=== PATIENT | female | born 1980 | race American Indian/Alaskan Native ===

== ENCOUNTER 2018-02-27 21:55 | Inpatient (IN) | payer OTHER ==
[2018-02-27] MEDS ORDERED: NACL 0.9% 1000 ML 1,000 ML IV ONE (22:33)
[2018-02-27 23:03] LABS: Basophils % (Auto) 0.6 % (0.0-1.8); Eosinophils % (Auto) 0.7 % (0.0-4.3); Hematocrit 37.4 % (30.3-42.9); Hemoglobin 12.5 gm/dl (10.1-14.3); Lymphocytes # (Auto) 1.6 K/mm3 (1.2-5.4); Lymphocytes % (Auto) 28.2 % (13.4-35.0); Mean Corpuscular HGB Conc 34 % (30-34); Mean Corpuscular Hemoglobin 32 pg (28-32); Mean Corpuscular Volume 95 fl (79-97); Monocytes # (Auto) 0.3 K/mm3 (0.0-0.8); Platelet Count 275 K/mm3 (140-440); Red Blood Count 3.92 M/mm3 (3.65-5.03); Red Cell Distribution Width 15.6 % (13.2-15.2)
[2018-02-27 23:11] LABS: Alanine Aminotransferase 54 units/L (7-56); Albumin 4.3 g/dL (3.9-5); BUN/Creatinine Ratio 13; Blood Urea Nitrogen 8 mg/dL (7-17); Hemolysis Index 9
[2018-02-28 00:32] LABS: Bilirubin,Urine SM (Negative); Blood,Urine NEG (Negative); Color,Urine Amber (Yellow); Hyaline Casts,Urine 16 /LPF; Mucus,Urine FEW /HPF
[2018-02-28 01:16] LABS: Ictotest,Urine Negative (Negative)
--- NOTE | 2018-02-28 01:53 | Emergency Department Report ---
ED Abdominal Pain HPI - General Chief Complaint: Abdominal Pain Stated Complaint: ABD/BACK PAIN Time Seen by Provider: 02/28/18 01:52 Source: patient Mode of arrival: Ambulatory Limitations: No Limitations - History of Present Illness Initial Comments: Patient complained of tinnitus of abdominal swelling and on abdominal pain. MD Complaint: abdominal pain -: Sudden, days(s) (2) Location: diffuse Radiation: back Migration to: no migration Severity: severe Severity scale (0 -10): 10 Quality: sharp Consistency: constant Improves With: nothing Worsens With: nothing Associated Symptoms: denies other symptoms - Related Data Allergies Allergy/AdvReac Type Severity Reaction Status Date / Time No Known Allergies Allergy Unverified 02/27/18 22:33 ED Review of Systems ROS: Stated complaint: ABD/BACK PAIN Other details as noted in HPI Comment: All other systems reviewed and negative Constitutional: denies: chills, fever Eyes: denies: eye pain ENT: denies: ear pain Respiratory: denies: cough, shortness of breath Cardiovascular: denies: chest pain, palpitations, dyspnea on exertion, orthopnea Endocrine: no symptoms reported Gastrointestinal: abdominal pain. denies: nausea, vomiting, diarrhea Genitourinary: denies: urgency, dysuria, frequency Musculoskeletal: denies: back pain Skin: denies: rash, lesions Neurological: denies: headache, weakness, numbness Psychiatric: denies: anxiety, depression, homicidal thoughts, suicidal thoughts Hematological/Lymphatic: denies: easy bleeding, easy bruising ED Past Medical Hx - Past Medical History Previous Medical History?: Yes Hx Hypertension: Yes - Surgical History Past Surgical History?: Yes Additional Surgical History: c section - Social History Smoking Status: Never Smoker Substance Use Type: Alcohol ED Physical Exam - General Limitations: No Limitations General appearance: alert, in distress - Head Head exam: Present: atraumatic, normocephalic, normal inspection - Eye Eye exam: Present: normal appearance, PERRL, EOMI Pupils: Present: normal accommodation - ENT ENT exam: Present: normal exam, normal orophraynx, mucous membranes moist - Neck Neck exam: Present: normal inspection, full ROM. Absent: tenderness - Respiratory Respiratory exam: Present: normal lung sounds bilaterally. Absent: respiratory distress, wheezes, rales, rhonchi, stridor - Cardiovascular Cardiovascular Exam: Present: normal rhythm, tachycardia, normal heart sounds - GI/Abdominal GI/Abdominal exam: Present: soft, distended, tenderness, guarding, normal bowel sounds. Absent: rebound, rigid - Extremities Exam Extremities exam: Present: normal inspection, full ROM, normal capillary refill. Absent: tenderness - Back Exam Back exam: Present: normal inspection, full ROM. Absent: tenderness - Neurological Exam Neurological exam: Present: alert, oriented X3, CN II-XII intact - Psychiatric Psychiatric exam: Present: normal affect, normal mood - Skin Skin exam: Present: warm, dry, intact, normal color. Absent: rash ED Course Vital Signs 02/27/18 02/27/18 02/28/18 22:12 22:30 00:45 Temperature 99.0 F 99.0 F Pulse Rate 126 H 123 H Respiratory 18 17 18 Rate Blood Pressure 152/117 152/117 O2 Sat by Pulse 99 99 99 Oximetry 02/28/18 02/28/18 02/28/18 02:40 03:10 05:11 Temperature Pulse Rate Respiratory 18 18 18 Rate Blood Pressure O2 Sat by Pulse Oximetry - Consultations Consultation #1: 02/28/18 04:40 I consulted the hospitalist in call Dr Villagomez and he will admit patient for further management. ED Medical Decision Making - Lab Data Result diagrams: 02/27/18 22:42 02/27/18 22:42 Lab Results 02/27/18 02/27/18 02/27/18 Range/Units 22:42 22:42 22:42 WBC 5.7 (4.5-11.0) K/mm3 RBC 3.92 (3.65-5.03) M/mm3 Hgb 12.5 (10.1-14.3) gm/dl Hct 37.4 (30.3-42.9) % MCV 95 (79-97) fl MCH 32 (28-32) pg MCHC 34 (30-34) % RDW 15.6 H (13.2-15.2) % Plt Count 275 (140-440) K/mm3 Lymph % (Auto) 28.2 (13.4-35.0) % [place] % (Auto) 6.0 (0.0-7.3) % Eos % (Auto) 0.7 (0.0-4.3) % Baso % (Auto) 0.6 (0.0-1.8) % Lymph # 1.6 (1.2-5.4) K/mm3 [place] # 0.3 (0.0-0.8) K/mm3 Eos # 0.0 (0.0-0.4) K/mm3 Baso # 0.0 (0.0-0.1) K/mm3 Seg Neutrophils % 64.5 (40.0-70.0) % Seg Neutrophils # 3.7 (1.8-7.7) K/mm3 Sodium 138 (137-145) mmol/L Potassium 3.5 L (3.6-5.0) mmol/L Chloride 97.4 L (98-107) mmol/L Carbon Dioxide 24 (22-30) mmol/L Anion Gap 20 mmol/L BUN 8 (7-17) mg/dL Creatinine 0.6 L (0.7-1.2) mg/dL Estimated GFR > 60 ml/min BUN/Creatinine Ratio 13 % Glucose 150 H (65-100) mg/dL Calcium 9.0 (8.4-10.2) mg/dL Total Bilirubin 0.60 (0.1-1.2) mg/dL AST 111 H (5-40) units/L ALT 54 (7-56) units/L Alkaline Phosphatase 116 (35-129) units/L Total Protein 7.9 (6.3-8.2) g/dL Albumin 4.3 (3.9-5) g/dL Albumin/Globulin Ratio 1.2 % Lipase (13-60) units/L HCG, Qual Negative (Negative) Urine Color (Yellow) Urine Turbidity (Clear) Urine pH (5.0-7.0) Ur Specific [place] (1.003-1.030) Urine Protein (Negative) mg/dL Urine Glucose (UA) (Negative) mg/dL Urine Ketones (Negative) mg/dL Urine Blood (Negative) Urine Nitrite (Negative) Urine Bilirubin (Negative) Urine Ictotest (Negative) Urine Urobilinogen (<2.0) mg/dL Ur Leukocyte Esterase (Negative) Urine WBC (Auto) (0.0-6.0) /HPF Urine RBC (Auto) (0.0-6.0) /HPF U Epithel Cells (Auto) (0-13.0) /HPF Hyaline Casts /LPF Urine Mucus /HPF 02/27/18 02/27/18 Range/Units 22:42 23:54 WBC (4.5-11.0) K/mm3 RBC (3.65-5.03) M/mm3 Hgb (10.1-14.3) gm/dl Hct (30.3-42.9) % MCV (79-97) fl MCH (28-32) pg MCHC (30-34) % RDW (13.2-15.2) % Plt Count (140-440) K/mm3 Lymph % (Auto) (13.4-35.0) % [place] % (Auto) (0.0-7.3) % Eos % (Auto) (0.0-4.3) % Baso % (Auto) (0.0-1.8) % Lymph # (1.2-5.4) K/mm3 [place] # (0.0-0.8) K/mm3 Eos # (0.0-0.4) K/mm3 Baso # (0.0-0.1) K/mm3 Seg Neutrophils % (40.0-70.0) % Seg Neutrophils # (1.8-7.7) K/mm3 Sodium (137-145) mmol/L Potassium (3.6-5.0) mmol/L Chloride (98-107) mmol/L Carbon Dioxide (22-30) mmol/L Anion Gap mmol/L BUN (7-17) mg/dL Creatinine (0.7-1.2) mg/dL Estimated GFR ml/min BUN/Creatinine Ratio % Glucose (65-100) mg/dL Calcium (8.4-10.2) mg/dL Total Bilirubin (0.1-1.2) mg/dL AST (5-40) units/L ALT (7-56) units/L Alkaline Phosphatase (35-129) units/L Total Protein (6.3-8.2) g/dL Albumin (3.9-5) g/dL Albumin/Globulin Ratio % Lipase 1031 H (13-60) units/L HCG, Qual (Negative) Urine Color [place] (Yellow) Urine Turbidity Slightly-cloudy (Clear) Urine pH 5.0 (5.0-7.0) Ur Specific [place] 1.031 H (1.003-1.030) Urine Protein 100 mg/dl (Negative) mg/dL Urine Glucose (UA) Neg (Negative) mg/dL Urine Ketones 20 (Negative) mg/dL Urine Blood Neg (Negative) Urine Nitrite Neg (Negative) Urine Bilirubin Sm (Negative) Urine Ictotest Negative (Negative) Urine Urobilinogen 2.0 (<2.0) mg/dL Ur Leukocyte Esterase Neg (Negative) Urine WBC (Auto) 9.0 H (0.0-6.0) /HPF Urine RBC (Auto) 2.0 (0.0-6.0) /HPF U Epithel Cells (Auto) 4.0 (0-13.0) /HPF Hyaline Casts 16 /LPF Urine Mucus Few /HPF - Radiology Data Radiology results: report reviewed, image reviewed - Medical Decision Making Abdominal Pain. Acute Pancreatitis. Critical Care Time: Yes Critical care time in (mins) excluding proc time.: 35 Critical care attestation.: If time is entered above; I have spent that time in minutes in the direct care of this critically ill patient, excluding procedure time. ED Disposition Clinical Impression: Alcohol abuse Acute pancreatitis Qualifiers: Pancreatitis type: unspecified pancreatitis type Acute pancreatitis complication: unspecified Qualified Code(s): K85.90 - Acute pancreatitis without necrosis or infection, unspecified Abdominal pain Qualifiers: Abdominal location: generalized Qualified Code(s): R10.84 - Generalized abdominal pain Disposition: -09 OP ADMIT IP TO THIS HOSP Is pt being admited?: Yes Does the pt Need Aspirin: No Condition: Stable Time of Disposition: 04:41
[2018-02-28] MEDS ORDERED: ZOFRAN IV ONE (02:25)
[2018-02-28] MEDS ORDERED: NACL 0.9% 1000 ML 1,000 ML IV ONE (02:25)
[2018-02-28] MEDS ORDERED: DILAUDID IV ONE ×2 (02:25→04:45)
--- NOTE | 2018-02-28 04:12 | Cat Scan Report ---
FINAL REPORT EXAM: CT ABDOMEN PELVIS W CON HISTORY: Abdomen Pain TECHNIQUE: CT images are acquired through the Abdomen and Pelvis in late arterial and delayed phases following intravenous administration of contrast. Transaxial, coronal and sagittal reformations are provided. PRIORS: None FINDINGS: Partially visualized intrathoracic contents are unremarkable. Hepatomegaly and hepatic steatosis. The liver is normal in contour. Portal vein is normal in caliber and patent. The gallbladder, spleen, and adrenal glands are unremarkable. There is bulbous enlargement of the pancreatic tail with mild adjacent stranding and edema seen on axial series 2, images 45-63. Splenic vasculature is normal in caliber and well opacified. The no focal peripancreatic fluid collection or pancreatic parenchymal hypo enhancement. Kidneys show no worrisome lesions, hydronephrosis, or calculi. Urinary bladder is unremarkable. Small and large bowel are normal in caliber. Appendix is normal. No free air, free fluid, or lymphadenopathy identified. Aorta is normal in course and caliber. Superficial soft tissues are remarkable for rectus diastasis. No acute or aggressive appearing skeletal findings. IMPRESSION: Findings are suggestive of uncomplicated acute distal pancreatitis. Hepatomegaly and hepatic steatosis.
[2018-02-28] MEDS ORDERED: ZOFRAN IV PRN (05:30)
[2018-02-28] MEDS ORDERED: TYLENOL PO PRN (05:30)
--- NOTE | 2018-02-28 05:56 | History and Physical Report ---
History of Present Illness Date of examination: 02/28/18 Date of admission: 02/28/2018 Chief complaint: Abdominal pain, nausea, vomiting x 2 days History of present illness: Pt is a 37 year old female with PMHx of HTN, depression, alcohol use disorder, c -section x 4, who presents to the ER with complain of abdominal pain, nausea and vomiting for 2 days. Pt states that the symptoms started after ingestion of a large quantity of alcohol on , she reports abdominal pain, nausea and vomiting. Pt also reports anorexia for several days, she denies any prior illness, denies ill-contact, denies headache, denies fever, denies chills. In the ER a CT scan of the abdomen was positive for acute pancreatitis, pt is admitted for treatment. Past History Past Medical History: hypertension, other (depression) Past Surgical History: (x4) Social history: alcohol abuse (1-2 pints a day) Family history: diabetes (father), hypertension (mother) Medications and Allergies Allergies Allergy/AdvReac Type Severity Reaction Status Date / Time No Known Allergies Allergy Unverified 02/27/18 22:33 Active Meds: Active Medications Acetaminophen (Tylenol) 650 mg PO Q4H PRN PRN Reason: Pain MILD(1-3)/Fever >100.5/OSUNA Enoxaparin Sodium (Lovenox) 40 mg SUB-Q QDAY DWAYNE Famotidine (Pepcid) 20 mg IV BID [facility] Potassium Chloride/Dextrose/Sod Cl (D5w/0.45% Nacl/Kcl 20 Meq) 20 meq in 1,000 mls @ 125 mls/hr IV DIRECT DWAYNE Levofloxacin/Dextrose (Levaquin 500mg/100ml) 500 mg in 100 mls @ 100 mls/hr IV Q24HR DWAYNE; Protocol Metoclopramide HCl (Reglan) 10 mg IV Q6H PRN PRN Reason: Nausea And Vomiting Morphine Sulfate (Morphine) 2 mg IV Q4H PRN PRN Reason: Pain, Moderate (4-6) Ondansetron HCl (Zofran) 4 mg IV Q8H PRN PRN Reason: Nausea And Vomiting Sodium Chloride (Sodium Chloride Flush Syringe 10 Ml) 10 ml IV PRN PRN PRN Reason: LINE FLUSH Review of Systems Constitutional: anorexia, poor appetite Psychiatric: depression Exam - Constitutional Vitals: Temp Pulse Resp BP Pulse Ox 99.0 F 123 H 18 152/117 99 02/27/18 22:30 02/27/18 22:30 02/28/18 05:11 02/27/18 22:30 02/28/18 00:45 General appearance: Present: no acute distress - EENT Eyes: Present: EOM intact ENT: hearing intact - Neck Neck: Present: normal ROM - Respiratory Respiratory effort: normal - Cardiovascular Rhythm: regular - Extremities Extremities: No edema, normal color Peripheral Pulses: within normal limits - Abdominal General gastrointestinal: Present: soft, tender Female genitourinary: Present: deferred - Rectal Rectal Exam: deferred - Integumentary Integumentary: Present: warm, dry - Musculoskeletal Musculoskeletal: strength equal bilaterally - Psychiatric Psychiatric: cooperative, depressed - Neurologic Neurologic: moves all extremities Results - Labs CBC & Chem 7: 02/27/18 22:42 02/27/18 22:42 Labs: Laboratory Last Values WBC 5.7 K/mm3 (4.5-11.0) 02/27/18 22:42 RBC 3.92 M/mm3 (3.65-5.03) 02/27/18 22:42 Hgb 12.5 gm/dl (10.1-14.3) 02/27/18 22:42 Hct 37.4 % (30.3-42.9) 02/27/18 22:42 MCV 95 fl (79-97) 02/27/18 22:42 MCH 32 pg (28-32) 02/27/18 22:42 MCHC 34 % (30-34) 02/27/18 22:42 RDW 15.6 % (13.2-15.2) H 02/27/18 22:42 Plt Count 275 K/mm3 (140-440) 02/27/18 22:42 Lymph % (Auto) 28.2 % (13.4-35.0) 02/27/18 22:42 [place] % (Auto) 6.0 % (0.0-7.3) 02/27/18 22:42 Eos % (Auto) 0.7 % (0.0-4.3) 02/27/18 22:42 Baso % (Auto) 0.6 % (0.0-1.8) 02/27/18 22:42 Lymph # 1.6 K/mm3 (1.2-5.4) 02/27/18 22:42 [place] # 0.3 K/mm3 (0.0-0.8) 02/27/18 22:42 Eos # 0.0 K/mm3 (0.0-0.4) 02/27/18 22:42 Baso # 0.0 K/mm3 (0.0-0.1) 02/27/18 22:42 Seg Neutrophils % 64.5 % (40.0-70.0) 02/27/18 22:42 Seg Neutrophils # 3.7 K/mm3 (1.8-7.7) 02/27/18 22:42 Sodium 138 mmol/L (137-145) 02/27/18 22:42 Potassium 3.5 mmol/L (3.6-5.0) L 02/27/18 22:42 Chloride 97.4 mmol/L (98-107) L 02/27/18 22:42 Carbon Dioxide 24 mmol/L (22-30) 02/27/18 22:42 Anion Gap 20 mmol/L 02/27/18 22:42 BUN 8 mg/dL (7-17) 02/27/18 22:42 Creatinine 0.6 mg/dL (0.7-1.2) L 02/27/18 22:42 Estimated GFR > 60 ml/min 02/27/18 22:42 BUN/Creatinine Ratio 13 % 02/27/18 22:42 Glucose 150 mg/dL (65-100) H 02/27/18 22:42 Calcium 9.0 mg/dL (8.4-10.2) 02/27/18 22:42 Total Bilirubin 0.60 mg/dL (0.1-1.2) 02/27/18 22:42 AST 111 units/L (5-40) H 02/27/18 22:42 ALT 54 units/L (7-56) 02/27/18 22:42 Alkaline Phosphatase 116 units/L (35-129) 02/27/18 22:42 Total Protein 7.9 g/dL (6.3-8.2) 02/27/18 22:42 Albumin 4.3 g/dL (3.9-5) 02/27/18 22:42 Albumin/Globulin Ratio 1.2 % 02/27/18 22:42 Lipase 1031 units/L (13-60) H 02/27/18 22:42 HCG, Qual Negative (Negative) 02/27/18 22:42 Urine Color [place] (Yellow) 02/27/18 23:54 Urine Turbidity Slightly-cloudy (Clear) 02/27/18 23:54 Urine pH 5.0 (5.0-7.0) 02/27/18 23:54 Ur Specific [place] 1.031 (1.003-1.030) H 02/27/18 23:54 Urine Protein 100 mg/dl mg/dL (Negative) 02/27/18 23:54 Urine Glucose (UA) Neg mg/dL (Negative) 02/27/18 23:54 Urine Ketones 20 mg/dL (Negative) 02/27/18 23:54 Urine Blood Neg (Negative) 02/27/18 23:54 Urine Nitrite Neg (Negative) 02/27/18 23:54 Urine Bilirubin Sm (Negative) 02/27/18 23:54 Urine Ictotest Negative (Negative) 02/27/18 23:54 Urine Urobilinogen 2.0 mg/dL (<2.0) 02/27/18 23:54 Ur Leukocyte Esterase Neg (Negative) 02/27/18 23:54 Urine WBC (Auto) 9.0 /HPF (0.0-6.0) H 02/27/18 23:54 Urine RBC (Auto) 2.0 /HPF (0.0-6.0) 02/27/18 23:54 U Epithel Cells (Auto) 4.0 /HPF (0-13.0) 02/27/18 23:54 Hyaline Casts 16 /LPF 02/27/18 23:54 Urine Mucus Few /HPF 02/27/18 23:54 Plasma/Serum Alcohol < 0.01 % (0-0.07) 02/28/18 04:24 Assessment and Plan Assessment and plan: 1. Acute pancreatits 2. Abdominal pain (due to above) 3. Nausea/vomiting 4. Alcohol use disorder 5. H/o hypertension 6. Depression 7. Hypokalemia Plan Keep NPO for bowel rest IVF for hydration Recheck lipase in am Replace potassium CIWA protocol for alcohol withdrawal Morphine PRN for pain Zofran PRN for nausea/vomiting Supportive care DVT prophylaxis with Lovenox GI prophylaxis with Pepcid Advance Directives: Yes VTE prophylaxis?: Chemical Plan of care discussed with patient/family: Yes
[2018-02-28] MEDS: MORPHINE IV PRN ×4 (08:05→20:12)
[2018-02-28] MEDS: D5W/0.45% NACL/KCL 20 MEQ 20 MEQ/1,000 ML BAG IV SCH (10:52)
[2018-02-28] MEDS: PEPCID IV SCH ×2 (10:53→22:11)
[2018-02-28] MEDS: LOVENOX SUB-Q SCH (10:53)
[2018-02-28] MEDS: LEVAQUIN 500MG/100ML 500 MG/100 ML BAG IV SCH (10:53)
[2018-02-28] MEDS: PERCOCET 5/325 PO PRN ×2 (13:27→22:11)
[2018-02-28] MEDS: SODIUM CHLORIDE FLUSH SYRINGE 10 ML IV PRN (22:11)
[2018-03-01] MEDS: D5W/0.45% NACL/KCL 20 MEQ 20 MEQ/1,000 ML BAG IV SCH ×2 (00:16→08:39)
[2018-03-01] MEDS ORDERED: SENOKOT PO PRN (02:30)
[2018-03-01] MEDS: MORPHINE IV PRN ×3 (02:40→18:15)
[2018-03-01] MEDS: PERCOCET 5/325 PO PRN ×3 (06:01→21:08)
[2018-03-01 06:42] LABS: Basophils % (Auto) 0.4 % (0.0-1.8); Eosinophils # (Auto) 0.1 K/mm3 (0.0-0.4); Eosinophils % (Auto) 1.9 % (0.0-4.3); Hematocrit 37.3 % (30.3-42.9); Hemoglobin 12.2 gm/dl (10.1-14.3); Lymphocytes # (Auto) 1.4 K/mm3 (1.2-5.4); Lymphocytes % (Auto) 24.8 % (13.4-35.0); Mean Corpuscular HGB Conc 33 % (30-34); Mean Corpuscular Hemoglobin 32 pg (28-32); Mean Corpuscular Volume 98 fl (79-97); Monocytes # (Auto) 0.5 K/mm3 (0.0-0.8); Monocytes % (Auto) 8.2 % (0.0-7.3); Platelet Count 207 K/mm3 (140-440); Red Blood Count 3.82 M/mm3 (3.65-5.03)
[2018-03-01 07:32] LABS: Alanine Aminotransferase 38 units/L (7-56); Albumin 3.5 g/dL (3.9-5); BUN/Creatinine Ratio 8; Blood Urea Nitrogen 3 mg/dL (7-17); Calcium 7.9 mg/dL (8.4-10.2); Hemolysis Index 20
[2018-03-01] MEDS ORDERED: APRESOLINE IV PRN (09:10)
[2018-03-01] MEDS: LOVENOX SUB-Q SCH (10:22)
[2018-03-01] MEDS: LEVAQUIN 500MG/100ML 500 MG/100 ML BAG IV SCH (10:22)
[2018-03-01] MEDS: PEPCID IV SCH ×2 (10:23→21:09)
--- NOTE | 2018-03-01 11:10 | Progress Note ---
Assessment and Plan Assessment and plan: 37-year-old woman with no significant past medical history. She presented with abdominal pain after binge drinking Acute pancreatitis due to etoh Continue IV fluids, continue pain medications, advance diet Hypokalemia, repleted History Interval history: Review of systems Constitutional: No fevers, no malaise, no joint pains CVS: No chest pain, no orthopnea, no dyspnea on exertion, no pedal edema GI: abdominal pain is improved, no diarrhea, no vomiting, no constipation Respiratory: No shortness of breath, no wheezing, no coughing Hospitalist Physical - Physical exam Narrative exam: General.: Appears well, no distress, nontoxic HEENT: Moist mucous membranes, extraocular muscles intact, no lymphadenopathy Neck: supple Cardiac: S1-S2 heard Lungs: clear to auscultation bilaterally Abdomen: soft , nontender, nondistended, bowel sounds positive Extremities: no edema clubbing or cyanosis Skin: no rash or lesions Neurologic: no gross focal deficits Psych: appropriate behavior, appropriate mood, corporative, judgment intact - Constitutional Vitals: Temp Pulse Resp BP Pulse Ox 98.9 F 99 H 20 173/103 100 03/01/18 05:48 03/01/18 05:48 03/01/18 05:48 03/01/18 10:23 03/01/18 05:48 General appearance: Present: no acute distress Results - Labs CBC & Chem 7: 03/02/18 05:26 03/02/18 05:26 Labs: Laboratory Last Values WBC 5.5 K/mm3 (4.5-11.0) 03/01/18 06:08 RBC 3.82 M/mm3 (3.65-5.03) 03/01/18 06:08 Hgb 12.2 gm/dl (10.1-14.3) 03/01/18 06:08 Hct 37.3 % (30.3-42.9) 03/01/18 06:08 MCV 98 fl (79-97) H 03/01/18 06:08 MCH 32 pg (28-32) 03/01/18 06:08 MCHC 33 % (30-34) 03/01/18 06:08 RDW 16.0 % (13.2-15.2) H 03/01/18 06:08 Plt Count 207 K/mm3 (140-440) 03/01/18 06:08 Lymph % (Auto) 24.8 % (13.4-35.0) 03/01/18 06:08 [place] % (Auto) 8.2 % (0.0-7.3) H 03/01/18 06:08 Eos % (Auto) 1.9 % (0.0-4.3) 03/01/18 06:08 Baso % (Auto) 0.4 % (0.0-1.8) 03/01/18 06:08 Lymph # 1.4 K/mm3 (1.2-5.4) 03/01/18 06:08 [place] # 0.5 K/mm3 (0.0-0.8) 03/01/18 06:08 Eos # 0.1 K/mm3 (0.0-0.4) 03/01/18 06:08 Baso # 0.0 K/mm3 (0.0-0.1) 03/01/18 06:08 Seg Neutrophils % 64.7 % (40.0-70.0) 03/01/18 06:08 Seg Neutrophils # 3.6 K/mm3 (1.8-7.7) 03/01/18 06:08 Sodium 136 mmol/L (137-145) L 03/01/18 06:08 Potassium 3.2 mmol/L (3.6-5.0) L 03/01/18 06:08 Chloride 99.6 mmol/L (98-107) 03/01/18 06:08 Carbon Dioxide 20 mmol/L (22-30) L 03/01/18 06:08 Anion Gap 20 mmol/L 03/01/18 06:08 BUN 3 mg/dL (7-17) L 03/01/18 06:08 Creatinine 0.4 mg/dL (0.7-1.2) L 03/01/18 06:08 Estimated GFR > 60 ml/min 03/01/18 06:08 BUN/Creatinine Ratio 8 % 03/01/18 06:08 Glucose 124 mg/dL (65-100) H 03/01/18 06:08 Calcium 7.9 mg/dL (8.4-10.2) L 03/01/18 06:08 Total Bilirubin 0.30 mg/dL (0.1-1.2) 03/01/18 06:08 AST 59 units/L (5-40) H 03/01/18 06:08 ALT 38 units/L (7-56) 03/01/18 06:08 Alkaline Phosphatase 96 units/L (35-129) 03/01/18 06:08 Total Protein 7.0 g/dL (6.3-8.2) 03/01/18 06:08 Albumin 3.5 g/dL (3.9-5) L 03/01/18 06:08 Albumin/Globulin Ratio 1.0 % 03/01/18 06:08 Lipase 411 units/L (13-60) H 03/01/18 06:08 HCG, Qual Negative (Negative) 02/27/18 22:42 Urine Color [place] (Yellow) 02/27/18 23:54 Urine Turbidity Slightly-cloudy (Clear) 02/27/18 23:54 Urine pH 5.0 (5.0-7.0) 02/27/18 23:54 Ur Specific [place] 1.031 (1.003-1.030) H 02/27/18 23:54 Urine Protein 100 mg/dl mg/dL (Negative) 02/27/18 23:54 Urine Glucose (UA) Neg mg/dL (Negative) 02/27/18 23:54 Urine Ketones 20 mg/dL (Negative) 02/27/18 23:54 Urine Blood Neg (Negative) 02/27/18 23:54 Urine Nitrite Neg (Negative) 02/27/18 23:54 Urine Bilirubin Sm (Negative) 02/27/18 23:54 Urine Ictotest Negative (Negative) 02/27/18 23:54 Urine Urobilinogen 2.0 mg/dL (<2.0) 02/27/18 23:54 Ur Leukocyte Esterase Neg (Negative) 02/27/18 23:54 Urine WBC (Auto) 9.0 /HPF (0.0-6.0) H 02/27/18 23:54 Urine RBC (Auto) 2.0 /HPF (0.0-6.0) 02/27/18 23:54 U Epithel Cells (Auto) 4.0 /HPF (0-13.0) 02/27/18 23:54 Hyaline Casts 16 /LPF 02/27/18 23:54 Urine Mucus Few /HPF 02/27/18 23:54 Plasma/Serum Alcohol < 0.01 % (0-0.07) 02/28/18 04:24
[2018-03-01] MEDS: NORVASC PO SCH (18:04)
[2018-03-01] MEDS: REGLAN IV PRN (18:15)
[2018-03-01] MEDS: KCL 40 MEQ in NACL 0.45% 1000 ML 1,000 ML IV SCH (18:25)
[2018-03-01] MEDS: SODIUM CHLORIDE FLUSH SYRINGE 10 ML IV PRN (21:10)
[2018-03-02] MEDS: MORPHINE IV PRN (02:25)
[2018-03-02 05:59] LABS: Basophils % (Auto) 0.6 % (0.0-1.8); Eosinophils # (Auto) 0.1 K/mm3 (0.0-0.4); Eosinophils % (Auto) 1.7 % (0.0-4.3); Hemoglobin 10.5 gm/dl (10.1-14.3); Lymphocytes # (Auto) 1.5 K/mm3 (1.2-5.4); Lymphocytes % (Auto) 33.9 % (13.4-35.0); Mean Corpuscular HGB Conc 33 % (30-34); Mean Corpuscular Hemoglobin 32 pg (28-32); Mean Corpuscular Volume 97 fl (79-97); Monocytes # (Auto) 0.5 K/mm3 (0.0-0.8); Monocytes % (Auto) 10.4 % (0.0-7.3); Platelet Count 202 K/mm3 (140-440); Red Blood Count 3.29 M/mm3 (3.65-5.03); Red Cell Distribution Width 15.9 % (13.2-15.2)
[2018-03-02 06:20] LABS: BUN/Creatinine Ratio 5; Blood Urea Nitrogen 2 mg/dL (7-17); Calcium 7.5 mg/dL (8.4-10.2); Hemolysis Index 0
[2018-03-02 06:50] VITALS: BP 126/76
[2018-03-02] MEDS: KCL 40 MEQ in NACL 0.45% 1000 ML 1,000 ML IV SCH (07:06)
[2018-03-02] MEDS: NORVASC PO SCH (10:47)
[2018-03-02] MEDS: REGLAN IV PRN (10:47)
[2018-03-02] MEDS: LOVENOX SUB-Q SCH (10:47)
[2018-03-02] MEDS: LEVAQUIN 500MG/100ML 500 MG/100 ML BAG IV SCH ×2 (10:47→10:50)
[2018-03-02] MEDS: PEPCID IV SCH (10:47)
--- NOTE | 2018-03-02 11:28 | Discharge Summary ---
Providers - Providers Date of Admission: 02/28/18 05:30 Attending physician: TABITHA SEN MD Primary care physician: SHAY PEMBERTON MD Hospitalization Condition: Stable Hospital course: 37-year-old woman with no significant past medical history. She presented with abdominal pain after binge drinking. She was found to have acute alcoholic pancreatitis. She was treated with IV fluids, antiemetics, pain medications and supportive care. The patient clinically improved, her diet was advanced, her electrolytes were repleted, she was counseled about alcohol cessation. She was subsequently discharged. Discharge diagnoses Acute pancreatitis, due to alcohol Hypokalemia HTN Disposition: DC-01 TO HOME OR SELFCARE Time spent for discharge: 33 minutes Core Measure Documentation - Palliative Care Palliative Care/ Comfort Measures: Not Applicable - Core Measures Any of the following diagnoses?: none Exam - Constitutional Vitals: Temp Pulse Resp BP Pulse Ox 98.6 F 87 16 126/76 100 03/02/18 05:20 03/02/18 05:20 03/02/18 05:20 03/02/18 05:20 03/02/18 05:20 General appearance: Present: no acute distress, well-nourished - EENT Eyes: Present: PERRL ENT: hearing intact, clear oral mucosa - Neck Neck: Present: supple, normal ROM - Respiratory Respiratory effort: normal Respiratory: bilateral: CTA - Cardiovascular Heart Sounds: Present: S1 & S2. Absent: rub, click - Extremities Extremities: pulses symmetrical, No edema Peripheral Pulses: within normal limits - Abdominal General gastrointestinal: Present: soft, non-tender, non-distended, normal bowel sounds Female genitourinary: Present: normal - Integumentary Integumentary: Present: clear, warm, dry - Musculoskeletal Musculoskeletal: gait normal, strength equal bilaterally - Psychiatric Psychiatric: appropriate mood/affect, intact judgment & insight - Neurologic Neurologic: CNII-XII intact, moves all extremities Plan Follow up with: PRIMARY CARE, [Primary Care Provider] - 3-5 Days Prescriptions: amLODIPine [Norvasc] 10 mg PO QDAY #30 tablet oxyCODONE /ACETAMINOPHEN [Percocet 5/325 mg] 2 tab PO Q6H PRN #30 tablet PRN Reason: Pain, Moderate (4-6)
== END 2018-03-02 15:35 | disposition home or self-care (01) | DRG 440 ==
LOC: ED 02-28 01:04 → 3A 02-28 05:30
PROVIDERS: ADMIT Internal Medicine; ATTEND Internal Medicine
DX: K85.20 Alcohol induced acute pancreatitis without necrosis or infection (principal); F32.9 Major depressive disorder, single episode, unspecified; I10 Essential (primary) hypertension; F10.10 Alcohol abuse, uncomplicated; E87.6 Hypokalemia; Y90.0 Blood alcohol level of less than 20 mg/100 ml; Z83.3 Family history of diabetes mellitus; Z82.49 Family history of ischemic heart disease and other diseases of the circulatory system; Z71.41 Alcohol abuse counseling and surveillance of alcoholic
CPT/HCPCS: 36415; 74177; 80048; 80053; 80320; 81001; 83690; 84703; 85025; 96374; 96375; G0480; J0360; J1170; J1650; J1956; J2270; J2405; J2765; J3480; J7030; Q9967